=== PATIENT | male | born 1990 | race American Indian/Alaskan Native ===

== ENCOUNTER 2020-05-08 20:27 | Emergency (ER) | payer SELFPAY ==
--- NOTE | 2020-05-08 21:13 | Emergency Department Report ---
ED Extremity Problem HPI - General Stated complaint: LEFT FOOT PAIN - History of Present Illness Initial comments: Patient is a 30-year-old -Sy[place] male with no past medical history presents to the ED with complaint of acute onset persistent left ankle pain and tingling sensation for the last 2 days. Patient states that these symptoms have worsened in the last 12 hours. Patient states that he is on his feet most of the time at work. Patient denies fall, traumatic injury, left ankle and foot weakness, back pain, dizziness, syncope, chest pain, shortness of breath, hip pain, knee pain, heavy lifting, fever and chills. MD Complaint: extremity pain (LEFT ANKLE TINGLING AND NUMBNESS), joint paint (Left ankle tingling and numbness) -: Sudden, days(s) (2) Location: left, lower extremity (ankle) History of Same: No -: Yes arthralgia (left ankle), No associated dyspnea, No associated chest pain Radiation: distal Severity scale (0 -10): 2 Quality: aching, dull Consistency: intermittent Improves with: nothing Worsens with: nothing Associated Symptoms: denies other symptoms - Related Data Previous Rx's Medication Instructions Recorded Last Taken Type Naproxen 500 mg PO Q12H PRN #24 tablet 05/08/20 Unknown Rx predniSONE [Deltasone] 20 mg PO QDAY #10 tab 05/08/20 Unknown Rx Allergies Allergy/AdvReac Type Severity Reaction Status Date / Time No Known Allergies Allergy Unverified 05/08/20 22:08 ED Review of Systems ROS: Stated complaint: LEFT FOOT PAIN Other details as noted in HPI Constitutional: denies: chills, fever Eyes: denies: eye pain, eye discharge, vision change ENT: denies: ear pain, throat pain Respiratory: denies: cough, shortness of breath, wheezing Cardiovascular: denies: chest pain, palpitations Endocrine: no symptoms reported Gastrointestinal: denies: abdominal pain, nausea, diarrhea Genitourinary: denies: urgency, dysuria Musculoskeletal: arthralgia (left ankle), myalgia. denies: back pain, joint swelling Skin: denies: rash, lesions Neurological: denies: headache, weakness, paresthesias Psychiatric: denies: anxiety, depression Hematological/Lymphatic: denies: easy bleeding, easy bruising ED Past Medical Hx - Medications Home Medications: Home Medications Medication Instructions Recorded Confirmed Last Taken Type Naproxen 500 mg PO Q12H PRN #24 tablet 05/08/20 Unknown Rx predniSONE [Deltasone] 20 mg PO QDAY #10 tab 05/08/20 Unknown Rx ED Physical Exam - General General appearance: alert, in no apparent distress - Head Head exam: Present: atraumatic, normocephalic, normal inspection - Eye Eye exam: Present: normal appearance, PERRL, EOMI Pupils: Present: normal accommodation - ENT ENT exam: Present: normal exam, normal orophraynx, mucous membranes moist, TM's normal bilaterally, normal external ear exam - Neck Neck exam: Present: normal inspection, full ROM - Respiratory Respiratory exam: Present: normal lung sounds bilaterally. Absent: respiratory distress, wheezes, rales, rhonchi, chest wall tenderness, decreased breath sounds, prolonged expiratory - Cardiovascular Cardiovascular Exam: Present: regular rate, normal rhythm, normal heart sounds. Absent: systolic murmur, diastolic murmur, rubs, gallop - GI/Abdominal GI/Abdominal exam: Present: soft, normal bowel sounds. Absent: tenderness, guarding, rebound, hyperactive bowel sounds, hypoactive bowel sounds, organomegaly - Extremities Exam Extremities exam: Present: normal inspection, full ROM, tenderness (Palpable mild left ankle tenderness), normal capillary refill. Absent: joint swelling, calf tenderness - Back Exam Back exam: Present: normal inspection, full ROM. Absent: tenderness, CVA tenderness (R), CVA tenderness (L), muscle spasm, paraspinal tenderness - Neurological Exam Neurological exam: Present: alert, oriented X3, CN II-XII intact, normal gait, reflexes normal - Psychiatric Psychiatric exam: Present: normal affect, normal mood - Skin Skin exam: Present: warm, dry, intact, normal color. Absent: rash ED Course Vital Signs 05/08/20 21:29 Temperature 98.1 F Pulse Rate 98 H Respiratory 18 Rate Blood Pressure 159/91 O2 Sat by Pulse 96 Oximetry ED Medical Decision Making - Lab Data Result diagrams: 05/08/20 21:20 05/08/20 21:20 - Medical Decision Making This is a 30-year-old -Syrian male with no past medical history presents to the ED with complaint of acute onset persistent left ankle pain and tingling sensation for the last 2 days. Patient states that these symptoms have worsened in the last 12 hours. Patient states that he is on his feet most of the time at work. In the ED, patient is alert and oriented x3 and is not in any distress. Lab test results were reviewed and are all nonactionable. Patient was discharged home on medications and advised to follow-up with his primary care physician in 5 to 7 days for reevaluation or return to the ED immediately if symptoms get worse. - Differential Diagnosis Ankle tenidinitis; Muscle strain; osteoarthritis; paresthesia Critical care attestation.: If time is entered above; I have spent that time in minutes in the direct care of this critically ill patient, excluding procedure time. ED Disposition Clinical Impression: Left ankle tendonitis, Tingling in extremities Muscle strain of left ankle Qualifiers: Encounter type: initial encounter Qualified Code(s): S96.912A - Strain of unspecified muscle and tendon at ankle and foot level, left foot, initial encounter Disposition: TO HOME OR SELFCARE Is pt being admited?: No Does the pt Need Aspirin: No Condition: Stable Instructions: Muscle Strain, Cetv-xy-Gncs, Paresthesia, Kfwz-vt-Ghiq, Achilles Tendinitis Additional Instructions: All lab test results were reviewed and are all nonactionable. Therefore take medication with food, drink plenty of fluids and follow-up with your primary care physician in 5 to 7 days for reevaluation. Return to the ED immediately if symptoms get worse. Prescriptions: predniSONE [Deltasone] 20 mg PO QDAY #10 tab Naproxen 500 mg PO Q12H PRN #24 tablet PRN Reason: Pain , Severe (7-10) Referrals: [facility] [Provider Group] - 7-10 days Time of Disposition: 23:14 Print Language: LUXEMBOURGISH
[2020-05-08 22:32] LABS: Basophils % (Auto) 0.6 % (0.0-1.8); Eosinophils # (Auto) 0.2 K/mm3 (0.0-0.4); Eosinophils % (Auto) 3.5 % (0.0-4.3); Hematocrit 45.5 % (35.5-45.6); Hemoglobin 15.5 gm/dl (11.8-15.2); Lymphocytes # (Auto) 2.3 K/mm3 (1.2-5.4); Lymphocytes % (Auto) 37.4 % (13.4-35.0); Mean Corpuscular HGB Conc 34 % (32-34); Mean Corpuscular Volume 90 fl (84-94); Monocytes # (Auto) 0.4 K/mm3 (0.0-0.8); Monocytes % (Auto) 6.9 % (0.0-7.3); Platelet Count 217 K/mm3 (140-440); Red Blood Count 5.04 M/mm3 (3.65-5.03); Red Cell Distribution Width 14.1 % (13.2-15.2)
[2020-05-08 22:52] LABS: Alanine Aminotransferase 30 units/L (7-56); Albumin 4.5 g/dL (3.9-5); BUN/Creatinine Ratio 12; Blood Urea Nitrogen 16 mg/dL (9-20); Calcium 9.7 mg/dL (8.4-10.2); Hemolysis Index 30
[2020-05-09 02:36] VITALS: BP 148/89
== END 2020-05-09 00:40 | disposition home or self-care (01) ==
LOC: ED 20:27
DX: S96.912A Strain of unspecified muscle and tendon at ankle and foot level, left foot, initial encounter (principal); M77.52 Other enthesopathy of left foot and ankle; R20.2 Paresthesia of skin; Z79.899 Other long term (current) drug therapy; X58.XXXA Exposure to other specified factors, initial encounter; Y93.89 Activity, other specified; Y92.89 Other specified places as the place of occurrence of the external cause; Y99.0 Civilian activity done for income or pay
CPT/HCPCS: 36415; 80053; 85025; 85045; 86140; 99283

== ENCOUNTER 2020-07-28 16:05 | Emergency (ER) | payer MEDICAID ==
[2020-07-28 16:15] VITALS: BP 150/95
--- NOTE | 2020-07-28 18:12 | XRay Report ---
LEFT KNEE 3 VIEW(S) INDICATION / CLINICAL INFORMATION: knee pain COMPARISON: None available. FINDINGS: BONES / JOINT(S): No acute fracture or subluxation. No significant arthritis. SOFT TISSUES: Mild suprapatellar knee joint effusion. 4 mm soft tissue calcification versus small ret ained foreign body deep soft tissues between tibia and fibula. ADDITIONAL FINDINGS: None. Signer Name: Derrick Jaramillo MD Signed: 07/28/2020 6:08 PM Workstation Name: [id number]
--- NOTE | 2020-07-28 18:36 | Emergency Department Report ---
ED Lower Extremity HPI - General Chief Complaint: Extremity Injury, Lower Stated Complaint: LEG PAIN Time Seen by Provider: 07/28/20 17:29 Source: patient Mode of arrival: Ambulatory Limitations: No Limitations - History of Present Illness Initial Comments: This is a 24-year-old male nontoxic, well nourished in appearance, no acute signs of distress presents to the ED with c/o of acute on chronic intermittent left knee pain x2 weeks. Patient denies any injuries or trauma. Patient denies any numbness, tingling, fever, chills, nausea, vomiting, chest pain, shortness of breath, headache, stiff neck. Patient denies any joint swelling or joint redness. Patient denies decreased range of motion or abnormal gait. Patient denies any allergies or significant past medical history. MD Complaint: knee injury -: week(s) Injury: Knee: Left Severity: mild Severity scale (0 -10): 3 Improves With: nothing Worsens With: nothing Associated Symptoms: swelling, ambulatory. denies: snap/pop sensation, numbness, tingling, unable to bear weight, able to partially bear weight - Related Data Previous Rx's Medication Instructions Recorded Last Taken Type Naproxen 500 mg PO Q12H PRN #24 tablet 05/08/20 Unknown Rx predniSONE [Deltasone] 20 mg PO QDAY #10 tab 05/08/20 Unknown Rx Naproxen 500 mg PO Q12H PRN #12 tablet 07/28/20 Unknown Rx Allergies Allergy/AdvReac Type Severity Reaction Status Date / Time No Known Allergies Allergy Verified 07/28/20 16:11 ED Review of Systems ROS: Stated complaint: LEG PAIN Other details as noted in HPI Constitutional: denies: chills, fever Eyes: denies: eye pain, eye discharge, vision change ENT: denies: ear pain, throat pain Respiratory: denies: cough, shortness of breath, wheezing Cardiovascular: denies: chest pain, palpitations Endocrine: no symptoms reported Gastrointestinal: denies: abdominal pain, nausea, diarrhea Genitourinary: denies: urgency, dysuria Musculoskeletal: denies: back pain, joint swelling, arthralgia Skin: denies: rash, lesions Neurological: denies: headache, weakness, paresthesias Psychiatric: denies: anxiety, depression Hematological/Lymphatic: denies: easy bleeding, easy bruising ED Past Medical Hx - Past Medical History Hx Hypertension: Yes Hx Diabetes: Yes (Prediabetic) Additional medical history: Sleep Apnea - Social History Smoking Status: Never Smoker Substance Use Type: None - Medications Home Medications: Home Medications Medication Instructions Recorded Confirmed Last Taken Type Naproxen 500 mg PO Q12H PRN #24 tablet 05/08/20 Unknown Rx predniSONE [Deltasone] 20 mg PO QDAY #10 tab 05/08/20 Unknown Rx Naproxen 500 mg PO Q12H PRN #12 tablet 07/28/20 Unknown Rx ED Physical Exam - General Limitations: No Limitations General appearance: alert, in no apparent distress - Head Head exam: Present: atraumatic, normocephalic - Eye Eye exam: Present: normal appearance - Neck Neck exam: Present: normal inspection, full ROM - Respiratory Respiratory exam: Absent: respiratory distress - Cardiovascular Cardiovascular Exam: Present: regular rate - Extremities Exam Extremities exam: Present: normal inspection, full ROM, tenderness, normal capillary refill. Absent: pedal edema, joint swelling, calf tenderness - Expanded Lower Extremity Exam Left Hip exam: Present: normal inspection, full ROM. Absent: tenderness, swelling Upper Leg exam: Present: normal inspection, full ROM. Absent: tenderness, swelling Knee exam: Present: normal inspection, full ROM, tenderness, swelling, full knee extension. Absent: abrasion, laceration, ecchymosis, deformity, dislocation, erythema, effusion, pain w/ pronation/supination, posterior draw sign, pain/ laxity with valgus, pain/laxity with varus Lower Leg exam: Present: normal inspection, full ROM. Absent: tenderness, swelling, abrasion, laceration, ecchymosis, deformity, crepidus, dislocation, erythema, palpable cord, Joseline's sign Ankle exam: Present: normal inspection, full ROM. Absent: tenderness, swelling, abrasion, laceration, ecchymosis, deformity, crepidus, dislocation, erythema, anterior draw sign Foot/Toe exam: Present: normal inspection, full ROM. Absent: tenderness, swelling Neuro vascular tendon exam: Present: no vascular compromise Gait: Positive: observed and normal - Back Exam Back exam: Present: normal inspection, full ROM - Neurological Exam Neurological exam: Present: alert, oriented X3, normal gait - Psychiatric Psychiatric exam: Present: normal affect, normal mood - Skin Skin exam: Present: warm, dry, intact, normal color. Absent: rash ED Course Vital Signs 07/28/20 16:14 Temperature 98.2 F Pulse Rate 108 H Respiratory 22 Rate Blood Pressure 150/95 O2 Sat by Pulse 97 Oximetry - Reevaluation(s) Reevaluation #1: 07/28/20 18:26 Patient is speaking in full sentences with no signs of distress noted. ED Lower Extremity MDM - Radiology Data [facility] [address] [place] [address] XRay Report Signed Patient: THEO BROOKE MR#: [id number] : 1990 Acct:[id number] Age/Sex: 30 / M ADM Date: 07/28/20 Loc: ED Attending Dr: Ordering Physician: HAMZAH ROSALES NP Date of Service: 07/28/20 Procedure(s): XR knee 3V LT Accession Number(s): [id number] cc: HAMZAH ROSALES NP Fluoro Time In Minutes: LEFT KNEE 3 VIEW(S) INDICATION / CLINICAL INFORMATION: knee pain COMPARISON: None available. FINDINGS: BONES / JOINT(S): No acute fracture or subluxation. No significant arthritis. SOFT TISSUES: Mild suprapatellar knee joint effusion. 4 mm soft tissue calcification versus small retained foreign body deep soft tissues between tibia and fibula. ADDITIONAL FINDINGS: None. Signer Name: Derrick Munoz MD Signed: 07/28/2020 6:08 PM Workstation Name: [id number] Transcribed By: Dictated By: DERRICK MUNOZ Electronically Authenticated By: DERRICK MUNOZ Signed Date/Time: 07/28/201807 DD/ 06 TD/TT: - Medical Decision Making This is a 30-year-old male that presents with left knee strain. Patient is stable and was examined by me. I referred patient to an orthopedic doctor for further evaluation for possible MRI. X-ray has been obtained and dictated by the radiologist. Patient is notified of the x-ray report with noted by the patient. Patient does have normal gait with no tenderness and no joint swelling. No ecchymosis. no joint redness or swelling. Not warm to touch. No signs of cellulites present. Patient was instructed to RICE therapy. Patient was instructed to take [id number] knee immobilizer for pain comfort. Instructed not to perform any transactivities until cleared by orthopedic doctor. Patient is discharged with Motrin. At time of discharge, the patient does not seem toxic or ill in appearance. No acute signs of distress noted. Patient agrees to discharge treatment plan of care. No further questions noted by the patient. Critical care attestation.: If time is entered above; I have spent that time in minutes in the direct care of this critically ill patient, excluding procedure time. ED Disposition Clinical Impression: Strain of left knee Qualifiers: Encounter type: initial encounter Qualified Code(s): S86.912A - Strain of unspecified muscle(s) and tendon(s) at lower leg level, left leg, initial encounter Disposition: TO HOME OR SELFCARE Is pt being admited?: No Does the pt Need Aspirin: No Condition: Stable Instructions: RICE Therapy for Routine Care of Injuries, Viuo-vq-Hbyy, How to Use a Knee Immobilizer Additional Instructions: Follow-up with a orthopedic doctor in 3-5 days or if symptoms worsen and continue return to emergency room as soon as possible. No physical activity that extremity until cleared by orthopedic doctor Prescriptions: Naproxen 500 mg PO Q12H PRN #12 tablet PRN Reason: Pain , Severe (7-10) Referrals: PRIMARY CARE, [Referring] - 3-5 Days CE CHRISTIANSON MD [Staff Physician] - 3-5 Days Forms: Work/School Release Form(ED) Time of Disposition: 18:36
== END 2020-07-28 18:53 | disposition home or self-care (01) ==
LOC: ED 16:05
DX: S86.912A Strain of unspecified muscle(s) and tendon(s) at lower leg level, left leg, initial encounter (principal); I10 Essential (primary) hypertension; E11.9 Type 2 diabetes mellitus without complications; Z79.899 Other long term (current) drug therapy; X58.XXXA Exposure to other specified factors, initial encounter; Y93.89 Activity, other specified; Y92.89 Other specified places as the place of occurrence of the external cause; Y99.8 Other external cause status
CPT/HCPCS: 99283

== ENCOUNTER 2020-09-23 21:16 | Emergency (ER) | payer MEDICAID ==
[2020-09-24] MEDS ORDERED: ASPIRIN 325 MG TAB PO ONE (00:21)
--- NOTE | 2020-09-24 00:44 | Emergency Department Report ---
ED Chest Pain HPI - General Chief Complaint: Chest Pain Stated Complaint: POSSIBLE THRUSH IN THROAT/ECZEMA Time Seen by Provider: 09/24/20 00:43 Source: patient Mode of arrival: Ambulatory Limitations: No Limitations - History of Present Illness MD Complaint: chest pain -: days(s) (3) Onset: during rest Pain Location: left chest, right chest Pain Radiation: none Severity: mild Severity scale (0 -10): 2 Quality: tightness Consistency: intermittent Worsens With: nothing Context: other (thrush) Other Symptoms: cough, acid taste in mouth Treatments Prior to Arrival: none - Related Data Previous Rx's Medication Instructions Recorded Last Taken Type Naproxen 500 mg PO Q12H PRN #24 tablet 05/08/20 Unknown Rx predniSONE [Deltasone] 20 mg PO QDAY #10 tab 05/08/20 Unknown Rx Naproxen 500 mg PO Q12H PRN #12 tablet 07/28/20 Unknown Rx Famotidine [Pepcid] 40 mg PO QHS #30 tablet 09/24/20 Unknown Rx Nystatin [Nystatin SUSP] 5 ml PO QID #120 ml 09/24/20 Unknown Rx Allergies Allergy/AdvReac Type Severity Reaction Status Date / Time No Known Allergies Allergy Verified 07/28/20 16:11 Heart Score - HEART Score History: Slightly suspicious EKG: Normal Age: < 45 Risk factors: No known risk factors Troponin: < normal limit HEART Score: 0 - EKG Read Time Time EKG Completed: 00:25 EKG Read Time: 00:25 - Critical Actions Critical Actions: 0-3 pts:0.9-1.7%risk of adverse cardiac event.Candidate for discharge ED Review of Systems ROS: Stated complaint: POSSIBLE THRUSH IN THROAT/ECZEMA Other details as noted in HPI Constitutional: denies: chills, fever Eyes: denies: eye pain, eye discharge, vision change ENT: denies: ear pain, throat pain Respiratory: denies: cough, shortness of breath, wheezing Cardiovascular: chest pain. denies: palpitations Endocrine: no symptoms reported Gastrointestinal: denies: abdominal pain, nausea, diarrhea Genitourinary: denies: urgency, dysuria Musculoskeletal: denies: back pain, joint swelling, arthralgia Skin: denies: rash, lesions Neurological: denies: headache, weakness, paresthesias Psychiatric: denies: anxiety, depression Hematological/Lymphatic: denies: easy bleeding, easy bruising ED Past Medical Hx - Past Medical History Previous Medical History?: Yes Hx Hypertension: Yes Hx Diabetes: Yes (Prediabetic) Additional medical history: Sleep Apnea - Surgical History Past Surgical History?: No - Social History Smoking Status: Current Every Day Smoker Substance Use Type: None - Medications Home Medications: Home Medications Medication Instructions Recorded Confirmed Last Taken Type Naproxen 500 mg PO Q12H PRN #24 tablet 05/08/20 Unknown Rx predniSONE [Deltasone] 20 mg PO QDAY #10 tab 05/08/20 Unknown Rx Naproxen 500 mg PO Q12H PRN #12 tablet 07/28/20 Unknown Rx Famotidine [Pepcid] 40 mg PO QHS #30 tablet 09/24/20 Unknown Rx Nystatin [Nystatin SUSP] 5 ml PO QID #120 ml 09/24/20 Unknown Rx ED Physical Exam - General Limitations: No Limitations ED Course Vital Signs 09/24/20 09/24/20 09/24/20 00:19 00:21 02:25 Temperature 97.6 F 98.4 F Pulse Rate 75 74 Respiratory 16 16 16 Rate Blood Pressure 148/83 Blood Pressure 124/74 [Left] O2 Sat by Pulse 98 100 Oximetry ED Medical Decision Making - Lab Data Result diagrams: 09/24/20 00:38 09/24/20 00:38 Critical care attestation.: If time is entered above; I have spent that time in minutes in the direct care of this critically ill patient, excluding procedure time. ED Disposition Clinical Impression: Thrush of mouth and esophagus Eczema Qualifiers: Eczema type: flexural Qualified Code(s): L20.82 - Flexural eczema Chest pain Qualifiers: Chest pain type: other chest pain Qualified Code(s): R07.89 - Other chest pain; R07.8 - Other chest pain Disposition: - TO HOME OR SELFCARE Is pt being admited?: No Does the pt Need Aspirin: No Condition: Stable Instructions: Nonspecific Chest Pain, Adult Prescriptions: Famotidine [Pepcid] 40 mg PO QHS #30 tablet Nystatin [Nystatin SUSP] 5 ml PO QID #120 ml Referrals: SANGEETA LOVE MD [Primary Care Provider] - 3-5 Days
--- NOTE | 2020-09-24 00:45 | XRay Report ---
CHEST 2 VIEWS INDICATION / CLINICAL INFORMATION: CP. Chest 2 views COMPARISON: None available. FINDINGS: SUPPORT DEVICES: None. HEART / MEDIASTINUM: No significant abnormality. LUNGS / PLEURA: No significant pulmonary or pleural abnormality. No pneumothorax. ADDITIONAL FINDINGS: No significant additional findings. IMPRESSION: 1. No acute findings. Signer Name: Alex Ramirez MD Signed: 09/24/2020 12:41 AM Workstation Name: [id number]
[2020-09-24 00:49] LABS: Basophils # (Auto) 0.1 K/mm3 (0.0-0.1); Basophils % (Auto) 0.9 % (0.0-1.8); Eosinophils # (Auto) 0.2 K/mm3 (0.0-0.4); Eosinophils % (Auto) 2.7 % (0.0-4.3); Hematocrit 47.8 % (35.5-45.6); Lymphocytes # (Auto) 2.9 K/mm3 (1.2-5.4); Lymphocytes % (Auto) 40.4 % (13.4-35.0); Mean Corpuscular HGB Conc 34 % (32-34); Mean Corpuscular Volume 88 fl (84-94); Monocytes # (Auto) 0.6 K/mm3 (0.0-0.8); Monocytes % (Auto) 8.1 % (0.0-7.3); Platelet Count 254 K/mm3 (140-440); Red Blood Count 5.41 M/mm3 (3.65-5.03); Red Cell Distribution Width 14.6 % (13.2-15.2)
[2020-09-24 01:12] LABS: Alanine Aminotransferase 69 units/L (7-56); Albumin 4.9 g/dL (3.9-5); BUN/Creatinine Ratio 8; Blood Urea Nitrogen 11 mg/dL (9-20); Calcium 10.2 mg/dL (8.4-10.2); Hemolysis Index 25
[2020-09-24 02:26] VITALS: BP 124/74
--- NOTE | 2020-09-29 09:38 | Electrocardiograph Report ---
[facility] Test Date: 2020-09-24 Test Time: 00:24:14 Pat Name: THEO BROOKE Department: Room: Gender: M Game Operator: : 1990 Requested By: LIZBETH SERRANO Order Number: [id number] Reading MD: Ector Sood Measurements Intervals [place] Rate: 77 P: 53 [place]: 166 QRS: 75 QRSD: 97 T: -57 QT: 346 QTc: 392 Interpretive Statements Sinus rhythm No previous ECG available for comparison Electronically Signed On 09-29-2020 9:38:04 EDT by Ector Sood
== END 2020-09-24 02:25 | disposition home or self-care (01) ==
LOC: ED 21:16
DX: B37.0 Candidal stomatitis (principal); L30.9 Dermatitis, unspecified; R07.89 Other chest pain; I10 Essential (primary) hypertension; E11.9 Type 2 diabetes mellitus without complications; F17.200 Nicotine dependence, unspecified, uncomplicated; Z79.899 Other long term (current) drug therapy
CPT/HCPCS: 36415; 71046; 80053; 84484; 85025; 93005

== ENCOUNTER 2021-05-16 16:10 | Emergency (ER) | payer MEDICAID ==
--- NOTE | 2021-05-16 16:25 | Emergency Department Report ---
ED Psych HPI - General Stated Complaint: PSYCH EVAL Time Seen by Provider: 05/16/21 16:12 - History of Present Illness Initial Comments: Patient is 31 years old male with no significant past psychiatric history. Patient brought to the emergency room via EMS from his work place. 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 Patient stated that he has been feeling depressed for the last few weeks and is getting worse now. Patient stated that he has been dealing with a lot of stresses especially with his family. Patient also reported a lot of nightmares. He also stated that he is hearing voices but he does not know what the same to him. He denied visual hallucination. He also denied any suicidal or homicidal ideation. MD Complaint: feels depressed -: days(s) Associated Psychiatric Symptoms: depression, auditory hallucinations Quality: constant Associated Symptoms: denies other symptoms Treatments Prior to Arrival: none - Related Data Previous Rx's Medication Instructions Recorded Last Taken Type Naproxen 500 mg PO Q12H PRN #24 tablet 05/08/20 Unknown Rx predniSONE [Deltasone] 20 mg PO QDAY #10 tab 05/08/20 Unknown Rx Naproxen 500 mg PO Q12H PRN #12 tablet 07/28/20 Unknown Rx Famotidine [Pepcid] 40 mg PO QHS #30 tablet 09/24/20 Unknown Rx Nystatin [Nystatin SUSP] 5 ml PO QID #120 ml 09/24/20 Unknown Rx Allergies Allergy/AdvReac Type Severity Reaction Status Date / Time lactase [From Dairy Aid] AdvReac Nausea Verified 05/16/21 16:43 ED Review of Systems ROS: Stated complaint: PSYCH EVAL Other details as noted in HPI Comment: All other systems reviewed and negative Constitutional: denies: chills, fever Respiratory: denies: cough, shortness of breath, SOB with exertion Cardiovascular: denies: chest pain Gastrointestinal: denies: abdominal pain, nausea, vomiting Musculoskeletal: denies: back pain Neurological: denies: headache, weakness, numbness, paresthesias, confusion Psychiatric: depression, auditory hallucinations. denies: anxiety, visual hallucinations, homicidal thoughts, suicidal thoughts ED Past Medical Hx - Past Medical History Hx Hypertension: Yes Hx Diabetes: Yes (Prediabetic) Additional medical history: Sleep Apnea - Social History Smoking Status: Current Every Day Smoker Substance Use Type: None - Medications Home Medications: Home Medications Medication Instructions Recorded Confirmed Last Taken Type Naproxen 500 mg PO Q12H PRN #24 tablet 05/08/20 Unknown Rx predniSONE [Deltasone] 20 mg PO QDAY #10 tab 05/08/20 Unknown Rx Naproxen 500 mg PO Q12H PRN #12 tablet 07/28/20 Unknown Rx Famotidine [Pepcid] 40 mg PO QHS #30 tablet 09/24/20 Unknown Rx Nystatin [Nystatin SUSP] 5 ml PO QID #120 ml 09/24/20 Unknown Rx ED Physical Exam - General General appearance: alert, in no apparent distress, other (depressed) - Head Head exam: Present: atraumatic, normocephalic, normal inspection - Eye Eye exam: Present: normal appearance - ENT ENT exam: Present: normal exam, normal orophraynx, mucous membranes moist - Neck Neck exam: Present: normal inspection, full ROM. Absent: tenderness, meningismus - Respiratory Respiratory exam: Present: normal lung sounds bilaterally - Cardiovascular Cardiovascular Exam: Present: regular rate, normal rhythm, normal heart sounds - GI/Abdominal GI/Abdominal exam: Present: soft, normal bowel sounds. Absent: distended, tenderness, guarding, rebound, rigid, organomegaly, mass, bruit, pulsatile mass, hernia - Extremities Exam Extremities exam: Present: normal inspection, full ROM, normal capillary refill. Absent: tenderness, pedal edema, joint swelling, calf tenderness - Back Exam Back exam: Present: normal inspection, full ROM. Absent: CVA tenderness (R), CVA tenderness (L) - Neurological Exam Neurological exam: Present: alert, oriented X3, CN II-XII intact, normal gait, reflexes normal. Absent: motor sensory deficit - Psychiatric Psychiatric exam: Present: depressed. Absent: agitated, anxious, flat affect, manic, homicidal ideation, suicidal ideation - Skin Skin exam: Present: warm, intact, normal color ED Course Vital Signs 05/16/21 16:40 Temperature 98 F Pulse Rate 93 H Respiratory 14 Rate Blood Pressure 156/93 [Left] O2 Sat by Pulse 97 Oximetry ED Medical Decision Making - Lab Data Result diagrams: 05/16/21 17:09 05/16/21 17:09 - Medical Decision Making Patient is 31 years old male with no significant past psychiatric history. Patient brought to the emergency room via EMS from his work place. 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 Patient stated that he has been feeling depressed for the last few weeks and is getting worse now. Patient stated that he has been dealing with a lot of stresses especially with his family. Patient also reported a lot of nightmares. He also stated that he is hearing voices but he does not know what the same to him. He denied visual hallucination. He also denied any suicidal or homicidal ideation. Patient remained stable in the ER with stable vital sign however patient stated that he cannot wait for the psychiatric assessment and he wanted to sign AGAINST MEDICAL ADVICE. Advised the patient to wait but he still insisted that he want to go because he has something to do. Patient stated that he is not suicidal and he is not thinking about killing himself. Patient is alert, oriented x3 and able to make sound decision. Patient signed AGAINST MEDICAL ADVICE. I advised him to return to the ER or go to another ER as soon as possible. Critical care attestation.: If time is entered above; I have spent that time in minutes in the direct care of this critically ill patient, excluding procedure time. ED Disposition Clinical Impression: Depression, Auditory hallucination Disposition: 07 LEFT AGAINST MEDICAL ADVICE Is pt being admited?: No Condition: Stable Instructions: Supporting Someone With Depression, Living With Depression Referrals: PRIMARY CARE, [Primary Care Provider] - 3-5 Days
[2021-05-16 16:42] VITALS: BP 156/93
[2021-05-16 17:38] LABS: Basophils % (Auto) 0.6 % (0.0-1.8); Eosinophils # (Auto) 0.3 K/mm3 (0.0-0.4); Eosinophils % (Auto) 4.2 % (0.0-4.3); Hematocrit 47.2 % (35.5-45.6); Lymphocytes # (Auto) 2.5 K/mm3 (1.2-5.4); Lymphocytes % (Auto) 41.2 % (13.4-35.0); Mean Corpuscular HGB Conc 34 % (32-34); Mean Corpuscular Volume 86 fl (84-94); Monocytes # (Auto) 0.4 K/mm3 (0.0-0.8); Monocytes % (Auto) 6.3 % (0.0-7.3); Platelet Count 226 K/mm3 (140-440); Red Blood Count 5.46 M/mm3 (3.65-5.03); Red Cell Distribution Width 14.9 % (13.2-15.2)
[2021-05-16 17:48] LABS: BUN/Creatinine Ratio 9; Blood Urea Nitrogen 13 mg/dL (9-20); Calcium 9.7 mg/dL (8.4-10.2); Hemolysis Index 13
== END 2021-05-17 19:32 | disposition left against medical advice (07) ==
LOC: ED 16:10
DX: F32.A Depression, unspecified (principal); R44.0 Auditory hallucinations; I10 Essential (primary) hypertension; E11.9 Type 2 diabetes mellitus without complications; F17.200 Nicotine dependence, unspecified, uncomplicated
CPT/HCPCS: 36415; 80048; 80320; 85025; 99283; G0480